=== PATIENT | female | born 1950 | race Caucasian/White ===

== ENCOUNTER 2019-12-11 10:00 | Outpatient (RCR) | payer MEDICARE, OTHER | END 2020-01-05 | disposition still patient (30) | LOC: MKS.ESL.PT | DX: M25.511 Pain in right shoulder (principal); Z80.3 Family history of malignant neoplasm of breast; W19.XXXA Unspecified fall, initial encounter ==

== ENCOUNTER 2020-02-07 23:07 | Emergency (ER) | payer MEDICARE, OTHER ==
[~2020-02-07] VITALS: Ht 165.1 cm; Wt 78.2 kg
[2020-02-07 23:14] VITALS: TEMP 99.7
[2020-02-08] LABS: BASO % 0.2 % (0.0-2.0); EOS # 0.1 (0.0-0.7); EOS % 0.6 % (0-4.0); GRAN # 7.8 (1.4-6.5); HEMATOCRIT 39.2 % (37.0-47.0); HEMOGLOBIN 12.2 g/dl (12.5-16.0); LYMPH # 1.7 (1.2-3.4); LYMPH % 15.3 % (20.0-51.0); MEAN CELL VOLUME 88 fl (80.0-100.0); MEAN CORPUSCULAR HEMOGLOBIN 27 pg (27.0-31.0); MEAN CORPUSCULAR HGB CONC 31 g/dl (33.0-37.0); MEAN PLATELET VOLUME 10.1 fl (7.4-10.4); MONO # 1.3 (0.1-0.6); MONO % 11.7 % (1.7-9.3); PLATELET COUNT 213 K/mm3 (130-400); RED BLOOD COUNT 4.46 M/mm3 (4.10-5.30); REDCELL DISTRIBUTION WIDTH-CV 14.5 % (11.5-14.5)
[2020-02-08 00:11] LABS: ALBUMIN 3.8 gm/dL (3.5-5.0); BILIRUBIN,TOTAL 0.3 mg/dL (0.0-1.0); CALCIUM 8.6 mg/dL (8.4-10.2); CREATININE, serum 1.37 (0.52-1.25); POTASSIUM 4.7 mmol/L (3.4-5.0); TOTAL PROTEIN 6.7 gm/dL (6.4-8.2)
[2020-02-08 00:47] LABS: COLLECTION METHOD CLEAN CATCH
[2020-02-08 00:56] LABS: PH 5 (5-8); SQUAMOUS EPITHELIAL 0-2 /hpf; URINE APPEARANCE Clear; URINE BACTERIA Occasional /hpf; URINE BILIRUBIN Negative (NEGATIVE); URINE BLOOD 1+ (NEGATIVE); URINE COLOR Yellow; URINE GLUCOSE Negative (NEGATIVE); URINE KETONE Negative (NEGATIVE); URINE LEUKOCYTE ESTERASE 1+ (NEGATIVE); URINE NITRATE Positive (NEGATIVE); URINE PROTEIN(semi-quant) Negative (NEGATIVE); URINE UROBILINOGEN Negative (NEGATIVE)
[2020-02-08] MEDS ORDERED: AMOXICILLIN 8751 TAB PO (02:03)
[2020-02-08] MEDS ORDERED: NORCO 325 MG-51 TAB PO (02:03)
[2020-02-08] MEDS ORDERED: ZOFRAN ODT4 MG PO (02:03)
[2020-02-08] MEDS ORDERED: CEPHALEXIN500 M1 PO (02:03)
[2020-02-08 02:50] VITALS: BP 117/73; PULSE 62
[2020-02-10] MEDS ORDERED: CIPRO 500MG TA500 MG PO (13:50)
== END 2020-02-08 02:30 | disposition home or self-care (01) ==
LOC: COL.ER 23:07
PROVIDERS: Physician Assistant
DX: K57.32 Diverticulitis of large intestine without perforation or abscess without bleeding (principal); N39.0 Urinary tract infection, site not specified
CPT/HCPCS: J0696; J2405; J3010; J7030

== ENCOUNTER → 2020-02-15 | Outpatient (CLI) | payer MEDICARE, OTHER ==
[~2020-02-15] MED LIST: AMOXICILLIN 8751 TAB PO; CEPHALEXIN500 M1 PO; CIPRO 500MG TA500 MG PO; NORCO 325 MG-51 TAB PO; ZOFRAN ODT4 MG PO
== END ==
LOC: COL.VAS 07:47
DX: R60.0 Localized edema (principal); M79.89 Other specified soft tissue disorders; I51.7 Cardiomegaly; I34.0 Nonrheumatic mitral (valve) insufficiency; D89.9 Disorder involving the immune mechanism, unspecified; Z94.1 Heart transplant status

== ENCOUNTER → 2020-02-29 | Outpatient (CLI) | payer MEDICARE, OTHER | LOC: COL.LAB 08:19 | DX: D89.9 Disorder involving the immune mechanism, unspecified (principal); Z94.1 Heart transplant status; Z11.59 Encounter for screening for other viral diseases ==

== ENCOUNTER 2021-12-25 13:30 | Outpatient (RCR) | payer MEDICARE, OTHER | END 2021-12-28 | disposition home or self-care (01) | LOC: MKS.ESL.PT | DX: M25.562 Pain in left knee (principal) ==

== ENCOUNTER 2022-01-08 08:36 | Outpatient (RCR) | payer MEDICARE, OTHER | END 2022-01-27 | disposition home or self-care (01) | LOC: MKS.ESL.PT | DX: M25.569 Pain in unspecified knee (principal) ==

== ENCOUNTER → 2022-02-20 14:56 | Outpatient (RCR) | payer MEDICARE, OTHER | END | disposition home or self-care (01) | LOC: MKS.ESL.PT 01-28 13:00 | DX: M75.22 Bicipital tendinitis, left shoulder (principal); M25.562 Pain in left knee ==

== ENCOUNTER 2022-12-28 15:50 | Emergency (ER) | payer MEDICARE, OTHER ==
[~2022-12-28] VITALS: Ht 165.1 cm; Wt 72.7 kg
[2022-12-28 16:02] VITALS: TEMP 98.1
[2022-12-28] MEDS ORDERED: HCTZ12.5TAB PO (16:09)
[2022-12-28] MEDS ORDERED: PLAVIX 75MG TAB75 MG PO (16:09)
[2022-12-28] MEDS ORDERED: TRULICITY1.5 MG/0.5 SQ (16:10)
[2022-12-28] MEDS ORDERED: EUTHYROX112 MCG PO (16:10)
[2022-12-28] MEDS ORDERED: DEMADEX10 MG PO (16:11)
[2022-12-28] MEDS ORDERED: NEURONTIN800 MG/TAB PO (16:12)
[2022-12-28] MEDS ORDERED: PEPCID 20MG TAB20 MG PO (16:12)
[2022-12-28] MEDS ORDERED: PROAIR HFA0.09 MG/AC IH (16:13)
[2022-12-28] MEDS ORDERED: CELEXA10 MG PO (16:13)
[2022-12-28] MEDS ORDERED: ZYRTEC 10MG10 MG PO (16:13)
[2022-12-28] MEDS ORDERED: ZETIA 10MG TAB10 MG PO (16:14)
[2022-12-28] MEDS ORDERED: TRULICITY3 MG/0.5 M SQ (16:14)
[2022-12-28] MEDS ORDERED: NORVASC 5MG5 MG/TAB PO (16:14)
[2022-12-28] MEDS ORDERED: DEMADEX5 MG PO (16:15)
[2022-12-28] MEDS ORDERED: PROGRAF 1MG1 MG PO (16:15)
[2022-12-28] MEDS ORDERED: NORCO 325 MG-51 TAB PO (17:46)
[2022-12-28 17:54] VITALS: BP 120/62; PULSE 71
== END 2022-12-28 17:54 | disposition home or self-care (01) ==
LOC: COL.ER 15:50
DX: S80.02XA Contusion of left knee, initial encounter (principal); S80.211A Abrasion, right knee, initial encounter; F17.200 Nicotine dependence, unspecified, uncomplicated; Z28.310 Unvaccinated for COVID-19; W01.0XXA Fall on same level from slipping, tripping and stumbling without subsequent striking against object, initial encounter; Y93.01 Activity, walking, marching and hiking

== ENCOUNTER → 2024-05-01 | Outpatient (CLI) | payer MEDICARE, OTHER ==
[~2024-05-01] MED LIST changes: +AMOXICILLIN 50500 MG PO; +ASPIRIN 81M81 MG/TA2 PO; +ATACAND 16M16 MG/TAB PO; +CELEXA10 MG PO; +COREG12.5 MG PO; +CRESTOR 10MG10 MG PO; +DEMADEX10 MG PO; +DEMADEX5 MG PO; +EUTHYROX112 MCG PO; +HCTZ12.5TAB PO; +NEURONTIN800 MG/TAB PO; +NORVASC 5MG5 MG/TAB PO; +PEPCID 20MG TAB20 MG PO; +PLAVIX 75MG TAB75 MG PO; +PRESERVISION A1 EAC3 PO; +PROAIR HFA0.09 MG/AC IH; +PROGRAF 1MG1 MG PO; +PROLIA60 MG/ML SQ; +RAPAMUNE1 MG PO; +TRULICITY1.5 MG/0.5 SQ; +TRULICITY3 MG/0.5 M SQ; +WELLBUTRIN SR150 M1 PO; +ZETIA 10MG TAB10 MG PO; +ZYRTEC 10MG10 MG PO
== END ==
LOC: COL.RAD 14:30
DX: R60.0 Localized edema (principal)